=== PATIENT | female | born 1965 | race Caucasian/White ===

== ENCOUNTER 2024-07-28 19:09 | Emergency (ER) | payer OTHER, SELFPAY ==
[2024-07-28 19:20] VITALS: BP 179/90; PULSE 102; RESP 18; TEMP 37.1; O2SAT 98; BMI 38.6
== END 2024-07-28 23:34 | disposition left against medical advice (07) ==
PROVIDERS: Emergency Provider Student in an Organized Health Care Education/Training Program
CPT/HCPCS: 99281